=== PATIENT | female | born 1980 | race Caucasian/White ===

== ENCOUNTER 2018-08-16 17:56 | Inpatient (IN) | payer OTHER ==
[2018-08-16 18:21] VITALS: BMI 20.9
--- NOTE | 2018-08-16 18:45 | HP ---
CIWA Score - CIWA Score Nausea/Vomitin Muscle Tremors: 2 Anxiety: 2 Agitation: 0-Normal Activity Paroxysmal Sweats: 2 Orientation: 1-Uncertain about Date Tacttile Disturbances: 1-Very Mild Itch/Numbness Auditory Disturbances: 2-Mild Harshness/Frighten Visual Disturbances: 1-Very Mild Sensitivity Headache: 3-Moderate CIWA-Ar Total Score: 16 Admission ROS BHS - HPI Chief Complaint: WITHDRAWAL SYMPTOMS Allergies/Adverse Reactions: Allergies Allergy/AdvReac Type Severity Reaction Status Date / Time No Known Allergies Allergy Verified 08/16/18 18:42 History of Present Illness: 38 Y.O. WOMAN WITH AN EXTENSIVE HISTORY OF ALCOHOL DEPENDENCE IS HERE SEEKING DETOX SERVICES. SHE REPORTS COMPLETED DETOX AT [facility] OVER ONE MONTH AGO. LONGEST PERIOD OF SOBRIETY HAS BEEN 1 YEAR. CLIENT WAS EVALUATED EARLIER TODAY AT [facility] AND WAS GIVEN ONE DOSE OF 25MG LIBRIUM (DISCHARGE PAPERWORK REVIEWED). Exam Limitations: No Limitations - Ebola screening Have you traveled outside of the country in the last 21 days: No (N) Have you had contact with anyone from an Ebola affected area: No Have you been sick,other than usual withdrawal symptoms: No Do you have a fever: No - Review of Systems Constitutional: Loss of Appetite, Unintentional Wgt. Loss EENT: reports: Blurred Vision, Tearing Respiratory: reports: Cough Cardiac: reports: Palpitations, Syncope GI: reports: Diarrhea, Nausea, Poor Appetite, Vomiting : reports: No Symptoms Reported Musculoskeletal: reports: Back Pain, Joint Pain Integumentary: reports: No Symptoms Reported Neuro: reports: Headache, Numbness, Tingling Endocrine: reports: No Symptoms Reported Hematology: reports: No Symptoms Reported Psychiatric: reports: Depressed Other Systems: Reviewed and Negative Patient History - Patient Medical History Hx Anemia: No Hx Asthma: No Hx Chronic Obstructive Pulmonary Disease (COPD): No Hx Cancer: No Hx Cardiac Disorders: No Hx Congestive Heart Failure: No Hx Hypertension: No Hx Hypercholesterolemia: No Hx Pacemaker: No HX Cerebrovascular Accident: No Hx Seizures: No Hx Dementia: No Hx Diabetes: No Hx Gastrointestinal Disorders: Yes (GERD) Hx Liver Disease: Yes (H/O FATTY LIVER ) Hx Genitourinary Disorders: No Hx Sexually Transmitted Disorders: No Hx Renal Disease (ESRD): No Hx Thyroid Disease: No Hx Human Immunodeficiency Virus (HIV): No Hx Hepatitis C: No Hx Depression: Yes Hx Suicide Attempt: No Hx Bipolar Disorder: No Hx Schizophrenia: No - Patient Surgical History Past Surgical History: Yes Hx Appendectomy: Yes (AT 7 Y.O.) Anesthesia Reaction: No - PPD History Previous Implant?: Yes Documented Results: Negative w/o proof PPD to be Administered?: Yes - Reproductive History Patient is a Female of Child Bearing Age (11 -55 yrs old): Yes Last Menstrual Period: 07/18/18 Patient : No - Smoking Cessation Smoking history: Current every day smoker Have you smoked in the past 12 months: Yes Aproximately how many cigarettes per day: 10 Hx Chewing Tobacco Use: Yes Initiated information on smoking cessation: Yes 'Breaking Loose' booklet given: 08/16/18 - Substance & Tx. History Hx Alcohol Use: Yes Hx Substance Use: No Substance Use Type: Alcohol Hx Substance Use Treatment: Yes (DETOX:>1MONTH AGO AT [facility] ) - Substances Abused Alcohol Route: Oral Frequency: Daily Amount used: 2 PINTS OF LIQUOR Age of first use: 26 Date of Last Use: 08/16/18 Family Disease History - Family Disease History Family Disease History: Diabetes: Father (BRAIN CA; ), Heart Disease: Father, CA: Father, Respiratory: Father, Other: Mother (ETOH DEPENDENCE ), Sister (; OPIATE DEPENDENCE ) Admission Physical Exam S - Vital Signs Vital Signs: Vital Signs - 24 hr 08/16/18 18:19 Temperature 99.2 F Pulse Rate 95 H Respiratory 19 Rate Blood Pressure 125/22 L - Physical General Appearance: Yes: Tremorous, Irritable, Anxious HEENTM: Yes: Hearing grossly Normal, Normal ENT Inspection, Normocephalic Respiratory: Yes: Chest Non-Tender, Lungs Clear, Normal Breath Sounds, No Respiratory Distress, No Accessory Muscle Use Neck: Yes: Within Normal Limits, No masses,lesions,Nodules Breast: Yes: Breast Exam Deferred Cardiology: Yes: Regular Rhythm, Regular Rate Abdominal: Yes: Within Normal Limits Genitourinary: Yes: Other (DEFERRED) Back: Yes: Normal Inspection Musculoskeletal: Yes: full range of Motion, Gait Steady Extremities: Yes: Tremors Neurological: Yes: Alert, Normal Mood/Affect, Normal Response Integumentary: Yes: Normal Color, Dry, Warm Lymphatic: Yes: Within Normal Limits - Diagnostic (1) Alcohol dependence with uncomplicated withdrawal Current Visit: Yes Status: Chronic (2) Syncope Current Visit: Yes Status: Acute (3) Migraines Current Visit: Yes Status: Acute (4) Nicotine dependence Current Visit: Yes Status: Chronic (5) History of fatty infiltration of liver Current Visit: Yes Status: Acute (6) GERD (gastroesophageal reflux disease) Current Visit: Yes Status: Chronic Cleared for Admission [facility] - Detox or Rehab [facility] Level of Care: Medically Managed Detox Regimen/Protocol: Librium [facility] Breath Alcohol Content Breath Alcohol Content: 0 Urine Pregancy Test - Result Urine Test Results: Negative- NO Line Present Urine Drug Screen - Results Drug Screen Negative: No Urine Drug Screen Results: BZO-Benzodiazepines
[2018-08-16] MEDS ORDERED: chlordiazePOXIDE HCL 25 MG CAPSULE PO ONE (18:56)
[2018-08-16] MEDS ORDERED: MAGNESIUM CITRATE 300 ML BOTTLE PO PRN (18:56)
[2018-08-16] MEDS ORDERED: hydrOXYzine PAMOATE 50 MG CAPSULE (FP) PO PRN (18:56)
[2018-08-16] MEDS ORDERED: P-EPHED 60MG/TRIPROLIDI 2.5MG TABLET PO PRN (18:56)
[2018-08-16] MEDS ORDERED: NICOTINE POLACRILEX 2 MG GUM BC PRN (18:56)
[2018-08-16] MEDS ORDERED: MAG HYDROX/AL HYDROX/SIMETH 30 ML UNIT-DOSE CUP PO PRN (18:56)
[2018-08-16] MEDS ORDERED: MAGNESIUM HYDROX 2400MG/30ML ORAL SUSPENSION 30 ML CUP PO PRN (18:56)
[2018-08-16] MEDS ORDERED: guaiFENesin/D-METHORPHAN HB 10 ML UNIT-DOSE CUPS PO PRN (18:56)
[2018-08-16] MEDS ORDERED: LOPERAMIDE HCL 2 MG CAPSULE PO PRN (18:56)
[2018-08-16] MEDS ORDERED: MENTHOL/PHENOL 1 EACH UD MM PRN (18:56)
[2018-08-16] MEDS ORDERED: chlordiazePOXIDE HCL 25 MG CAPSULE PO PRN (18:56)
[2018-08-16] MEDS ORDERED: ONDANSETRON *ODT* 4 MG TABLET SL PRN (18:58)
[2018-08-16] MEDS: NAPROXEN 500 MG TABLET (FP) PO SCH (22:11)
[2018-08-16] MEDS: MELATONIN 5 MG TABLETS PO PRN (22:11)
[2018-08-16] MEDS: THIAMINE HCL 100 MG TABLET (FP) PO SCH (22:11)
[2018-08-16] MEDS: chlordiazePOXIDE HCL 25 MG CAPSULE PO SCH (22:12)
[2018-08-17 01:33] LABS: URINE APPEARANCE CLEAR; URINE BILIRUBIN NEGATIVE (<2.0 mg/dL); URINE COLOR LTYELLOW; URINE GLUCOSE (UA) NEGATIVE (NEGATIVE); URINE KETONE 2+ (NEGATIVE); URINE LEUK ESTERASE NEGATIVE (NEGATIVE); URINE NITRITE NEGATIVE (NEGATIVE); URINE PROTEIN NEGATIVE (NEGATIVE); URINE UROBILINOGEN NEGATIVE mg/dL (0.2-1.0)
[2018-08-17] MEDS: chlordiazePOXIDE HCL 25 MG CAPSULE PO SCH ×4 (05:27→22:39)
[2018-08-17] MEDS: ACETAMINOPHEN 325 MG TABLET (FP) PO PRN ×2 (08:50→16:03)
--- NOTE | 2018-08-17 09:39 | PN ---
S CIWA - CIWA Score Nausea/Vomitin-Mild Nausea/No Vomiting Muscle Tremors: 3 Anxiety: 2 Agitation: 2 Paroxysmal Sweats: 1-Minimal Palms Moist Orientation: 1-Uncertain about Date Tacttile Disturbances: 1-Very Mild Itch/Numbness Auditory Disturbances: 1-Very Mild Visual Disturbances: 0-None Headache: 1-Very Mild CIWA-Ar Total Score: 13 BHS Progress Note (SOAP) Subjective: nausea sweat tremor anxiety headache Objective: 08/17/18 09:40 Vital Signs Temperature 99.9 F H 08/17/18 09:24 Pulse Rate 106 H 08/17/18 09:24 Respiratory Rate 16 08/17/18 09:24 Blood Pressure 124/81 08/17/18 09:24 O2 Sat by Pulse Oximetry (%) Laboratory Last Values Urine Color Ltyellow 08/16/18 22:55 Urine Appearance Clear 08/16/18 22:55 Urine pH 5.0 (5.0-8.0) 08/16/18 22:55 Ur Specific [place] 1.012 (1.010-1.035) 08/16/18 22:55 Urine Protein Negative (NEGATIVE) 08/16/18 22:55 Urine Glucose (UA) Negative (NEGATIVE) 08/16/18 22:55 Urine Ketones 2+ (NEGATIVE) H 08/16/18 22:55 Urine Blood Negative (NEGATIVE) 08/16/18 22:55 Urine Nitrite Negative (NEGATIVE) 08/16/18 22:55 Urine Bilirubin Negative (<2.0 mg/dL) 08/16/18 22:55 Urine Urobilinogen Negative mg/dL (0.2-1.0) 08/16/18 22:55 Ur Leukocyte Esterase Negative (NEGATIVE) 08/16/18 22:55 lab noted Assessment: 08/17/18 09:41 withdrawal sx nausea due to withdrawal Plan: continue detox zofran prn
[2018-08-17 10:06] LABS: HEMATOCRIT 33.9 % (32.4-45.2); HEMOGLOBIN 10.8 GM/dL (10.7-15.3); MCH 27.1 pg (25.7-33.7); MCHC 31.8 g/dl (32.0-36.0); MEAN CELL VOLUME 85.3 fl (80-96); MEAN PLT VOLUME 8.6 fl (7.5-11.1); PLATELET COUNT 311 K/MM3 (134-434); RBC 3.97 M/mm3 (3.60-5.2); RDW 22.1 % (11.6-15.6); WHITE BLOOD COUNT 4.4 K/mm3 (4.0-10.0)
[2018-08-17] MEDS: PRENATAL VITAMINS W/ FOLIC ACID TABLET (FP) PO SCH (10:12)
[2018-08-17] MEDS: NAPROXEN 500 MG TABLET (FP) PO SCH ×2 (10:13→22:39)
[2018-08-17] MEDS: NICOTINE 14 MG/24 HOURS TOPICAL PATCH TD SCH (10:13)
[2018-08-17 10:21] LABS: ALBUMIN 3.9 g/dl (3.4-5.0); ALK PHOS 75 U/L (45-117); ANION GAP 9 MMOL/L (8-16); BILIRUBIN,TOTAL 1.6 mg/dL (0.2-1); BLOOD UREA NITROGEN 10 mg/dL (7-18); CALCIUM 8.9 mg/dL (8.5-10.1); CHLORIDE 96 mmol/L (98-107); CO2 30 mmol/L (21-32); CREATININE 0.6 mg/dL (0.55-1.3); GLUCOSE,RANDOM 86 mg/dL (74-106); POTASSIUM 3.9 mmol/L (3.5-5.1); SGOT/AST 22 U/L (15-37); SGPT/ALT 19 U/L (13-61); SODIUM 134 mmol/L (136-145)
--- NOTE | 2018-08-17 12:07 | EKG ---
Test Reason : Blood Pressure : / mmHG Vent. Rate : 075 BPM Atrial Rate : 075 BPM P-R Int : 130 ms QRS Dur : 102 ms QT Int : 400 ms P-R-T Axes : 065 075 037 degrees QTc Int : 446 ms NORMAL SINUS RHYTHM NORMAL ECG NO PREVIOUS ECGS AVAILABLE Confirmed by JOELLE BRUCE MD ([id number]) on 08/17/2018 12:07:25 PM Referred By: Confirmed By:JOELLE BRUCE MD
[2018-08-17] MEDS: MELATONIN 5 MG TABLETS PO PRN (22:39)
[2018-08-17] MEDS: THIAMINE HCL 100 MG TABLET (FP) PO SCH (22:39)
[2018-08-18] MEDS: chlordiazePOXIDE HCL 25 MG CAPSULE PO SCH ×3 (05:42→17:20)
[2018-08-18] MEDS: ACETAMINOPHEN 325 MG TABLET (FP) PO PRN (08:57)
[2018-08-18] MEDS: PRENATAL VITAMINS W/ FOLIC ACID TABLET (FP) PO SCH (10:36)
[2018-08-18] MEDS: NAPROXEN 500 MG TABLET (FP) PO SCH ×2 (10:37→22:11)
[2018-08-18] MEDS: NICOTINE 14 MG/24 HOURS TOPICAL PATCH TD SCH (10:37)
--- NOTE | 2018-08-18 11:37 | PN ---
S CIWA - CIWA Score Nausea/Vomitin-Mild Nausea/No Vomiting Muscle Tremors: 3 Anxiety: 2 Agitation: 1-Slight > Activity Paroxysmal Sweats: 1-Minimal Palms Moist Orientation: 1-Uncertain about Date Tacttile Disturbances: 1-Very Mild Itch/Numbness Auditory Disturbances: 0-None Visual Disturbances: 0-None Headache: 1-Very Mild CIWA-Ar Total Score: 11 BHS Progress Note (SOAP) Subjective: sweat tremor anxiety restlessness Objective: 08/18/18 11:36 Vital Signs Temperature 98.2 F 08/18/18 10:10 Pulse Rate 101 H 08/18/18 10:10 Respiratory Rate 18 08/18/18 10:10 Blood Pressure 124/69 08/18/18 10:10 O2 Sat by Pulse Oximetry (%) Laboratory Last Values WBC 4.4 K/mm3 (4.0-10.0) 08/17/18 07:00 RBC 3.97 M/mm3 (3.60-5.2) 08/17/18 07:00 Hgb 10.8 GM/dL (10.7-15.3) 08/17/18 07:00 Hct 33.9 % (32.4-45.2) 08/17/18 07:00 MCV 85.3 fl (80-96) 08/17/18 07:00 MCH 27.1 pg (25.7-33.7) 08/17/18 07:00 MCHC 31.8 g/dl (32.0-36.0) L 08/17/18 07:00 RDW 22.1 % (11.6-15.6) H 08/17/18 07:00 Plt Count 311 K/MM3 (134-434) 08/17/18 07:00 MPV 8.6 fl (7.5-11.1) 08/17/18 07:00 Sodium 134 mmol/L (136-145) L 08/17/18 07:00 Potassium 3.9 mmol/L (3.5-5.1) 08/17/18 07:00 Chloride 96 mmol/L (98-107) L 08/17/18 07:00 Carbon Dioxide 30 mmol/L (21-32) 08/17/18 07:00 Anion Gap 9 MMOL/L (8-16) 08/17/18 07:00 BUN 10 mg/dL (7-18) 08/17/18 07:00 Creatinine 0.6 mg/dL (0.55-1.3) 08/17/18 07:00 Creat Clearance w eGFR > 60 (>60) 08/17/18 07:00 Random Glucose 86 mg/dL (74-106) 08/17/18 07:00 Calcium 8.9 mg/dL (8.5-10.1) 08/17/18 07:00 Total Bilirubin 1.6 mg/dL (0.2-1) H 08/17/18 07:00 AST 22 U/L (15-37) 08/17/18 07:00 ALT 19 U/L (13-61) 08/17/18 07:00 Alkaline Phosphatase 75 U/L (45-117) 08/17/18 07:00 Total Protein 7.0 g/dl (6.4-8.2) 08/17/18 07:00 Albumin 3.9 g/dl (3.4-5.0) 08/17/18 07:00 Urine Color Ltyellow 08/16/18 22:55 Urine Appearance Clear 08/16/18 22:55 Urine pH 5.0 (5.0-8.0) 08/16/18 22:55 Ur Specific [place] 1.012 (1.010-1.035) 08/16/18 22:55 Urine Protein Negative (NEGATIVE) 08/16/18 22:55 Urine Glucose (UA) Negative (NEGATIVE) 08/16/18 22:55 Urine Ketones 2+ (NEGATIVE) H 08/16/18 22:55 Urine Blood Negative (NEGATIVE) 08/16/18 22:55 Urine Nitrite Negative (NEGATIVE) 08/16/18 22:55 Urine Bilirubin Negative (<2.0 mg/dL) 08/16/18 22:55 Urine Urobilinogen Negative mg/dL (0.2-1.0) 08/16/18 22:55 Ur Leukocyte Esterase Negative (NEGATIVE) 08/16/18 22:55 RPR Titer Nonreactive (NONREACTIVE) 08/17/18 07:00 lab noted Assessment: 08/18/18 11:37 withdrawal sx Plan: continue detox
[2018-08-18] MEDS: chlordiazePOXIDE 5 MG CAPSULE PO SCH (22:11)
[2018-08-18] MEDS: MELATONIN 5 MG TABLETS PO PRN (22:11)
[2018-08-18] MEDS: THIAMINE HCL 100 MG TABLET (FP) PO SCH (22:12)
[2018-08-19] MEDS: chlordiazePOXIDE 5 MG CAPSULE PO SCH ×3 (05:44→17:43)
[2018-08-19] MEDS: PRENATAL VITAMINS W/ FOLIC ACID TABLET (FP) PO SCH (10:04)
[2018-08-19] MEDS: NAPROXEN 500 MG TABLET (FP) PO SCH ×2 (10:04→22:23)
[2018-08-19] MEDS: NICOTINE 14 MG/24 HOURS TOPICAL PATCH TD SCH (10:05)
--- NOTE | 2018-08-19 12:51 | PN ---
S Progress Note Note: PATIENT CONTINUES WITH DETOX REGIMEN. PATIENT FEELS WELL. C/O INTERMITTENT SLEEPINESS Vital Signs Temperature 98.1 F 08/19/18 09:07 Pulse Rate 57 L 08/19/18 09:07 Respiratory Rate 18 08/19/18 09:07 Blood Pressure 102/55 L 08/19/18 09:07 O2 Sat by Pulse Oximetry (%) Vital Signs Temperature 98.1 F 08/19/18 09:07 Pulse Rate 57 L 08/19/18 09:07 Respiratory Rate 18 08/19/18 09:07 Blood Pressure 102/55 L 08/19/18 09:07 O2 Sat by Pulse Oximetry (%) Laboratory Tests 08/16/18 08/17/18 08/17/18 22:55 07:00 07:00 WBC 4.4 RBC 3.97 Hgb 10.8 Hct 33.9 MCV 85.3 MCH 27.1 MCHC 31.8 L RDW 22.1 H Plt Count 311 MPV 8.6 Sodium 134 L Potassium 3.9 Chloride 96 L Carbon Dioxide 30 Anion Gap 9 BUN 10 Creatinine 0.6 Creat Clearance w eGFR > 60 Random Glucose 86 Calcium 8.9 Total Bilirubin 1.6 H AST 22 ALT 19 Alkaline Phosphatase 75 Total Protein 7.0 Albumin 3.9 Urine Color Ltyellow Urine Appearance Clear Urine pH 5.0 Ur Specific [place] 1.012 Urine Protein Negative Urine Glucose (UA) Negative Urine Ketones 2+ H Urine Blood Negative Urine Nitrite Negative Urine Bilirubin Negative Urine Urobilinogen Negative Ur Leukocyte Esterase Negative RPR Titer 08/17/18 07:00 WBC RBC Hgb Hct MCV MCH MCHC RDW Plt Count MPV Sodium Potassium Chloride Carbon Dioxide Anion Gap BUN Creatinine Creat Clearance w eGFR Random Glucose Calcium Total Bilirubin AST ALT Alkaline Phosphatase Total Protein Albumin Urine Color Urine Appearance Urine pH Ur Specific [place] Urine Protein Urine Glucose (UA) Urine Ketones Urine Blood Urine Nitrite Urine Bilirubin Urine Urobilinogen Ur Leukocyte Esterase RPR Titer Nonreactive PE: SKIN WARM AND DRY CAR S1S2 RESP CTA BL EXT FULL ROM, NO EDEMA, ALERT AND ORIENTED X 3 A/P WITHDRAWAL SX CONTINUE DETOX REGIMEN ENCOURAGE ORAL FLUIDS CONTINUE TO MONITOR CLINICALLY
[2018-08-19] MEDS: THIAMINE HCL 100 MG TABLET (FP) PO SCH (22:22)
[2018-08-19] MEDS: chlordiazePOXIDE HCL 10 MG CAPSULE PO SCH (22:22)
[2018-08-19] MEDS: MELATONIN 5 MG TABLETS PO PRN (22:22)
[2018-08-20] MEDS: chlordiazePOXIDE HCL 10 MG CAPSULE PO SCH (05:45)
[2018-08-20 09:34] VITALS: BP 106/69; PULSE 92; TEMP 98.5
[2018-08-20] MEDS: NAPROXEN 500 MG TABLET (FP) PO SCH (10:05)
[2018-08-20] MEDS: PRENATAL VITAMINS W/ FOLIC ACID TABLET (FP) PO SCH (10:05)
--- NOTE | 2018-08-20 10:15 | DS ---
[facility] Detox Discharge Summary Admission Date: 08/16/18 Discharge Date: 08/20/18 - History Present History: Alcohol Dependence - Physical Exam Results Vital Signs: Vital Signs Temperature 98.5 F 08/20/18 09:33 Pulse Rate 92 H 08/20/18 09:33 Respiratory Rate 18 08/20/18 09:33 Blood Pressure 106/69 08/20/18 09:33 O2 Sat by Pulse Oximetry (%) Pertinent Admission Physical Exam Findings: PATIENT TOLERATED DETOX REGIMEN WITHOUT ADVERSE EVENT. PATIENT MEDICALLY STABLE. DENIES SI/HI. PATIENT ENCOURAGED TO ATTEND GROUP MEETINGS TO PREVENT RELAPSE AND TO FOLLOW UP WITH PCP WITHIN ONE WEEK OF D/C. PATIENT EDUCATED ON WITHDRAWAL SYMPTOMS AND RELATED RISK FACTORS AND RECOMMENDED TO SEEK MEDICAL ATTENTION IF WITTHDRAWAL SYMPTOMS OCCUR. D/C INSTRUCTIONS GIVEN TO PATIENT BY STAFF. - Treatment Hospital Course: Detox Protocol Followed, Detoxed Safely, Responded well, Discharged Condition Good - Medication Discharge Medications: Ambulatory Orders NK [No Known Home Medication] 08/16/18 - Diagnosis (1) Alcohol dependence with uncomplicated withdrawal Current Visit: Yes Status: Resolved - AMA Did Patient Leave Against Medical Advice: No
== END 2018-08-20 10:07 | disposition home or self-care (01) | DRG 775 ==
LOC: YASAS 17:56 → Y6N 19:29
PROC: HZ2ZZZZ Detoxification Services for Substance Abuse Treatment (ICD-10-PCS; principal; 2018-08-16)
DX: F10.230 Alcohol dependence with withdrawal, uncomplicated (principal); F17.210 Nicotine dependence, cigarettes, uncomplicated; K21.9 Gastro-esophageal reflux disease without esophagitis; G40.909 Epilepsy, unspecified, not intractable, without status epilepticus; R55 Syncope and collapse; Z87.19 Personal history of other diseases of the digestive system
CPT/HCPCS: 36415; 80053; 81003; 85027; 86593; 93005; 93010; Q0162